=== PATIENT | male | born 1990 | race Caucasian/White ===

== ENCOUNTER 2017-09-13 15:28 | Emergency (ER) | payer OTHER ==
[2017-09-13 15:55] VITALS: BP 120/75
--- NOTE | 2017-09-13 17:21 | UC ---
[facility], scribed for Faiza Torres MD on 09/13/17 at 1702 . Skin Complaint HPI - HPI Summary HPI Summary: Pt is a 27 years old male presenting to the [facility] complaining of skin infection on the back of his right arm since 3 days ago. Pt reports that he came from work and felt irritation under side of the right arm but didn't see any actual wound initially. Pt reports felt like a pimple under skin. Pt noticed erythema spreading like a ring and white skin with an actual wound 2 days ago and noticed it gradually got bigger. Pt reports raised with drainage since yesterday. mild tender. no streak, fever. no odor. Pt tried antibiotic ointment , hot compress, Epsom salt and took Benadryl last night but it did not help to alleviate the symptoms. Aggravating factors are when the skin infection gets touched by any surface such as "when it touches by T-shirt it hurts". Pt rates the pain at 5/10 in severity and describes it as aching pain. 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 Pt's medication reviewed this visit. Pt's tdap utd - History of Current Complaint Chief Complaint: UCSkin Time Seen by Provider: 09/13/17 16:18 Stated Complaint: ARM COMPLAINT Hx Obtained From: Patient Onset/Duration: Lasting Days - Since three days ago. Skin Exposure Onset/Duration: Days Ago - 3 days ago. Onset Severity: Mild Current Severity: Mild Pain Intensity: 5 Pain Scale Used: 0-10 Numeric Location: Other - back side of the right arm. Aggravating Factor(s): Other - when the infection touches any surface. Alleviating Factor(s): Nothing Associated Signs & Symptoms: Positive: Negative - Allergy/Home Medications Allergies/Adverse Reactions: Allergies Allergy/AdvReac Type Severity Reaction Status Date / Time No Known Allergies Allergy Verified 09/13/17 15:45 Review of Systems Constitutional: Negative Skin: Other - skin infection on the back of the right arm with drainage, streaks , erthymatous. Eyes: Negative ENT: Negative Respiratory: Negative Cardiovascular: Negative Gastrointestinal: Negative Genitourinary: Negative Motor: Negative Neurovascular: Negative Musculoskeletal: Negative Neurological: Negative Psychological: Negative All Other Systems Reviewed And Are Negative: Yes PMH/Surg Hx/FS Hx/Imm Hx - Additional Past Medical History Additional PMH: NEGATIVE: CVA, [place] Previously Healthy: Yes - Surgical History Surgical History: Yes Surgery Procedure, Year, and Place: cyst removed on thigh - Family History Known Family History: Positive: Other - LYME DISEASE. - Social History Occupation: Employed Full-time Lives: With Family Alcohol Use: Occasionally Substance Use Type: Marijuana Smoking Status (MU): Light Every Day Tobacco Smoker Type: Cigarettes Physical Exam - Summary Physical Exam Summary: Vital Signs Reviewed: Yes A+Ox3, no distress Eyes: Conjunctiva Clear ENT: Hearing grossly normal neck: supple Respiratory: Positive: No respiratory distress, No accessory muscle use CTA throughout no w/r Cardiovascular: skin color reflect adequate perfusion CTA throughout no w/r Musculoskeletal Exam: SHETH x 4 without difficulty Neurological: Positive: Alert, ambulatory without difficulty Psychological: Positive: Normal Response To Family Skin: Positive: no ecchymosis right, posterior upper arm - pt with 2x3 cm area of erythema, mild induration. pt with purulent discharge from 2 small open wound no fluctuance mild warmth no streak Triage Information Reviewed: Yes Vital Signs: Initial Vital Signs Temp 99.1 F 09/13/17 15:46 Pulse 76 09/13/17 15:46 Resp 16 09/13/17 15:46 BP 120/75 09/13/17 15:46 Pulse Ox 99 09/13/17 15:46 Course/Dx - Course Course Of Treatment: pt with area of erythema right posterior upper arm with central area of drainage. No fluctuance. no fluctuance area to I+D. discharge culture taken. warm soaks. motrin/apap. return precautions. wound care - Diagnoses Provider Diagnoses: right arm cellulitis Discharge - Sign-Out/Discharge Documenting (check all that apply): Discharge/Admit/Transfer - Discharge Plan Condition: Stable Disposition: HOME Prescriptions: DOXYcycline CAP(*) [DOXYcycline 100MG CAP(*)] 100 mg PO BID #28 cap Patient Education Materials: Cellulitis (ED) Forms: *Work Release Referrals: Joe Tobar MD [Primary Care Provider] - Additional Instructions: - Okay to alternate ibuprofen (Advil, Motrin) 600mg and tylenol every 3 hours for pain. Take with food - apply warm, wet soaks to your wound, 2-3 times a day for 15 minutes at a time - take antibiotics as prescribed until gone - If you develop fever, increased pain, red streaking, increased reddness or ANY other concerns it is recommended you go to the emergency department for further evaluation and treatment - Contact your doctor to schedule a re-check later this week. Discuss with your primary doctor your tetanus status - Billing Disposition and Condition Condition: STABLE Disposition: Home The documentation as recorded by the [facility] accurately reflects the service I personally performed and the decisions made by me, Faiza Torres MD.
--- NOTE | 2017-09-16 11:37 | PN ---
Progress Note - Progress Note Date of Service: 09/16/17 Note: Patient's would culture did not grow anything of significance. No further action required <Desiree Foley - Last Filed: 09/16/17 11:36> Attestation Statement User Type: Provider - I was available for consult. The patient was not presented to me. -Haritha <Faiza Torres - Last Filed: 09/16/17 13:41>
== END 2017-09-13 17:30 | disposition home or self-care (01) ==
LOC: UCEAST 15:28
DX: L03.113 Cellulitis of right upper limb (principal); F17.210 Nicotine dependence, cigarettes, uncomplicated; Z83.1 Family history of other infectious and parasitic diseases
CPT/HCPCS: 87070; 87205; 99212; G0463